=== PATIENT | female | born 1990 | race Caucasian/White ===

== ENCOUNTER 2022-06-09 15:47 | Emergency (ER) | payer OTHER, SELFPAY ==
--- OUTSIDE RECORDS SUMMARY | 2022-06-09 15:50 | XMS REPORT | Continuity of Care Document ---
:1990 Author Organization [facility] t Address [address] [place] [address] Care Team Providers Name Role Phone Dominic Greco DO Primary Care Physician DOMINIC GRECO Attending Clinician Unavailable GAGAN ROB Attending Clinician Unavailable Gagan Quintana Attending Clinician Lab, Adc Fam Pob I Attending Clinician Unavailable Arleen Molina Attending Clinician ARLEEN RODRIGUEZ Attending Clinician Unavailable Doctor Unassigned, [place] Attending Clinician Unavailable Payers Payer Name Policy Type Policy Number Effective Date Expiration Date Elkin prince MULTPLN-RELIANT 2 [id number] 2021 00:00:00 STD LIFE/PPO Problems Condition Condition Condition Status Onset Resolution Last Treating Co mments Source Name Details Category Date Date Treatment Clinician Date No known No known Disease Kelse y active active Seybold problems problems Allergies, Adverse Reactions, Alerts Allergy Allergy Status Severity Reaction(s) Onset Inactive Treating Comm ents Source Name Type Date Date Clinician NO KNOWN Drug Active Univers ALLERGIE Class ity of [facility] Social History Social Habit Start Date Stop Date Quantity Comments Source Tobacco use and 2021-10-27 2021-10-27 Smokeless tobacco Ernst byrnes ybold exposure 00:00:00 00:00:00 non-user Sex Ass[birth year] At [birth year] Rebekah Se ybold 00:00:00 00:00:00 Smoking Status Start Date Stop Date Source Unknown if ever smoked Universit y [facility] Never smoked tobacco Rebekah Pedrazayb old Medications Ordered Filled Start Stop Current Ordering Indication Dosage Frequency Signature Comments Components Source Medication Medication Date Date Medication? Clinician (SIG) Name Name Celecoxib Yes [id number] 200mg Take 1 Rebekah (CeleBREX) 18 540379 capsule Seyb old 200 MG oral 00:00: (200 mg Capsule 00 total) by mouth 2 times daily Vital Signs Vital Name Observation Time Observation Value Comments Source Diastolic blood 2021-10-27 16:58:00 63 mm[Hg] Tayese y Seybold pressure Heart rate 2021-10-27 16:58:00 86 /min Rebekah mendezboarnel Body temperature 2021-10-27 16:58:00 36.5 Tia Ese ey Seybold Respiratory rate 2021-10-27 16:58:00 14 /min Ese mendez Seybniraj Body height 2021-10-27 16:58:00 170.2 cm Rebekah dorsey Body weight 2021-10-27 16:58:00 108.591 kg Rebekah dorsey BMI 2021-10-27 16:58:00 37.50 kg/m2 Rebekah dorsey Systolic blood pressure 2021-10-27 16:58:00 112 mm[Hg] Rebekah Pedrazanatali Procedures This patient has no known procedures. Encounters Start End Encounter Admission Attending Care Care Encounter Source Date/Time Date/Time Type Type Clinicians Facility Department ID 2021-11-07 2021-11-07 Outpatient REBEKAH GRECO [id number] Rebekah 00:00:00 00:00:00 DOMINIC salguero 2021-10-31 2021-10-31 Outpatient REBEKAH ROB [id number] Rebekah 00:00:00 00:00:00 GAGAN salguero 2021-10-27 2021-10-27 Office [place] Rob [id number] Rebekah 11:00:00 11:30:00 Visit Gagan Pettit [id number] [place] [id number] 2021-10-27 2021-10-27 Outpatient REBEKAH ROB [id number] Rebekah 00:00:00 00:00:00 GAGAN salguero 2020-09-07 2020-09-07 Laboratory Lab, Adc Fam Pob I [facility] [id number] Univers 15:08:38 15:28:38 Only JenniferArleen [facility] [id number] [facility]y [facility] [place] [id number] [place] as Professio [phone] [address] 2020-09-07 2020-09-07 Outpatient R JENNIFER [facility] [id number] Univers 15:20:00 15:20:00 ARLEEN ity of [facility] 2020-09-07 2020-09-07 Letter Doctor PÉREZ [id number] Univers 00:00:00 00:00:00 (Out) Unassigned, MAHENDRA [id number] ity of [place] [facility] [id number] [place] as [phone] [address] 2020-09-07 2020-09-07 Letter Jennifer [facility] [id number] Univers 00:00:00 00:00:00 (Out) Arleen [facility] [id number] i ty [facility] [place] [id number] [place] Professio [phone] [place] [address] [address] Results This patient has no known results.
[2022-06-09 16:19] LABS: Absolute Lymphocytes (CBC) 2.4 K/uL (0.7-4.9); Hematocrit 43.5 % (36.0-45.0); Lymphocytes % 27.3 % (15.3-44.8); MCV 84.4 fL (80-100); RBC Red Blood Cell Count 5.16 M/uL (3.86-4.86)
[2022-06-09 16:25] LABS: Protime INR 1.03
[2022-06-09 16:40] LABS: ALT/SGPT 34 U/L (12-78); AST/SGOT 13 U/L (15-37); Albumin 3.8 g/dL (3.4-5.0); Alkaline Phosphatase 88 U/L (45-117); BUN Blood Urea Nitrogen 10 mg/dL (7-18); Bicarbonate 26 mmol/L (21-32); Bilirubin Direct < 0.1 mg/dL (0-0.2); Bilirubin Total 0.4 mg/dL (0.2-1.0); Glomerular Filtration Rate 95 ml/min (=/>90); Glucose Level 94 mg/dL (74-106); Magnesium 2.2 mg/dL (1.8-2.4); NT PRO-BNP 8 pg/mL (<125); Potassium 3.8 mmol/L (3.5-5.1); Protein, Total 7.7 g/dL (6.4-8.2); Sodium Level 138 mmol/L (136-145); Troponin High Sensitivity < 3.0 pg/mL (<58.9)
--- NOTE | 2022-06-09 18:10 | RAD REPORT ---
EXAM DESCRIPTION: RAD - Chest Single View - 06/09/2022 5:44 pm CLINICAL HISTORY: CHEST PAIN COMPARISON: None TECHNIQUE: AP portable chest image was obtained 06/09/2022 5:44 pm . FINDINGS: Lungs are clear. Heart and vasculature are normal. No measurable pleural effusion and no p neumothorax. No acute bony abnormality seen. No acute aortic findings suspected. IMPRESSION: No acute cardiopulmonary process.
[2022-06-09] MEDS ORDERED: KETOROLAC 30 MG/ML INJ ONE (18:16)
[2022-06-09] MEDS ORDERED: MAGNES/ALUMIN/SIMET 30ML UCUP ONE ×2 (18:16→18:17)
[2022-06-09] MEDS ORDERED: LIDOCAINE VISCOUS 2% SOLN 15 ML UDC ONE (18:16)
--- NOTE | 2022-06-09 19:37 | ER ---
Nurse's Notes [facility] Name: Comfort Ivory Age: 32 yrs Sex: Female : 1990 Arrival Date: 06/09/2022 Time: 15:49 Bed 11 Private MD: Diagnosis: Chest pain, unspecified Presentation: 06/09 15:51 Chief complaint: Patient states: I started having chest pain yesterday that is going bm7 into my left shoulder. I went to urgent care and they told me it would be better if I came here because I have a family historic heart problems. Coronavirus screen: At this time, the client does not indicate any symptoms associated with coronavirus-19. Ebola Screen: No symptoms or risks identified at this time. Initial Sepsis Screen: Does the patient meet any 2 criteria? No. Patient's initial sepsis screen is negative. Does the patient have a suspected source of infection? No. Patient's initial sepsis screen is negative. Risk Assessment: Do you want to hurt yourself or someone else? Patient reports no desire to harm self or others. Onset of symptoms was June 09, 2022. 15:51 Method Of Arrival: Ambulatory 7 15:51 Acuity: TIARRA 3 bm7 Triage Assessment: 15:53 General: Appears in no apparent distress. comfortable, obese, Behavior is calm, bm7 cooperative, appropriate for age. Pain: Complains of pain in anterior aspect of left upper chest Pain radiates to left arm. EENT: No deficits noted. No signs and/or symptoms were reported regarding the EENT system. Neuro: No deficits noted. Cardiovascular: Reports chest pain, Denies shortness of breath, Heart tones S1 S2 present Capillary refill < 3 seconds Patient's skin is warm and dry. Chest pain is described as vague, radiates to left arm(s). Respiratory: No deficits noted. GI: No deficits noted. No signs and/or symptoms were reported involving the gastrointestinal system. : No deficits noted. No signs and/or symptoms were reported regarding the genitourinary system. Derm: No deficits noted. No signs and/or symptoms reported regarding the dermatologic system. Musculoskeletal: No deficits noted. No signs and/or symptoms reported regarding the musculoskeletal system. 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 - Social history:: Smoking status: Patient denies any tobacco usage or history of. Screenin:10 Abuse screen: Denies threats or abuse. Denies injuries from another. Nutritional eh3 screening: No deficits noted. Tuberculosis screening: No symptoms or risk factors identified. Fall Risk None identified. Assessment: 16:10 General: Appears in no apparent distress. uncomfortable, Behavior is cooperative, eh3 appropriate for age, anxious. Pain: Complains of pain in left arm and anterior aspect of left upper chest Pain currently is 7 out of 10 on a pain scale. Quality of pain is described as sharp, Pain began 1 day ago. Is continuous. Pain: Pain does not radiate. Alleviated by nothing. Neuro: Level of Consciousness is awake, alert, obeys commands, Oriented to person, place, time, Appropriate for age. Cardiovascular: Capillary refill < 3 seconds Patient's skin is warm and dry. Rhythm is sinus rhythm. Respiratory: Airway is patent Respiratory effort is even, unlabored. GI: No signs and/or symptoms were reported involving the gastrointestinal system. : No signs and/or symptoms were reported regarding the genitourinary system. EENT: No signs and/or symptoms were reported regarding the EENT system. Derm: No signs and/or symptoms reported regarding the dermatologic system. Musculoskeletal: Circulation, motion, and sensation intact. Range of motion: intact in all extremities. 17:10 Reassessment: Patient and/or family updated on plan of care and expected duration. Pain eh3 level reassessed. Patient is alert, oriented x 3, equal unlabored respirations, skin warm/dry/pink. 18:10 Reassessment: Patient and/or family updated on plan of care and expected duration. Pain eh3 level reassessed. Patient is alert, oriented x 3, equal unlabored respirations, skin warm/dry/pink. Vital Signs: 15:51 BP 112 / 71; Pulse 86; Resp 16; Temp 97.5(TE); Pulse Ox 98% on R/A; Weight 104.33 kg bm7 (R); Height 5 ft. 7 in. (170.18 cm); Pain 7/10; 16:10 BP 118 / 77; Pulse 80; Resp 18; Pulse Ox 98% on R/A; eh3 17:10 BP 117 / 70; Pulse 83; Resp 16; Pulse Ox 100% on R/A; eh3 18:10 BP 118 / 73; Pulse 80; Resp 18; Pulse Ox 96% on R/A; eh3 19:36 BP 125 / 99; Pulse 89; Resp 18; Pulse Ox 100% on R/A; ld1 15:51 Body Mass Index 36.02 (104.33 kg, 170.18 cm) 7 ED Course: 15:49 Patient arrived in ED. as 15:50 Juan Jose Martinez PA is PHCP. [facility] 15:50 Marlee Jacobsen MD is Attending Physician. [facility] 15:53 Triage completed. [facility] 15:53 Arm band placed on right wrist. [facility] 15:56 Latanya Wheatley, ZEFERINO is Primary Nurse. eh3 16:10 Patient has correct armband on for positive identification. Bed in low position. Call 3 light in reach. Side rails up X2. Adult w/ patient. Client placed on continuous cardiac and pulse oximetry monitoring. NIBP monitoring applied. Door closed. Noise minimized. 16:10 No provider procedures requiring assistance completed. Patient maintains SpO2 eh3 saturation greater than 95% on room air. 18:35 Troponin High Sensitivity Sent. eh3 19:47 IV discontinued, intact, bleeding controlled, No redness/swelling at site. ld1 Administered Medications: 18:35 Drug: Ketorolac 30 mg Route: IVP; Site: right antecubital; eh3 18:35 Drug: GI Cocktail without - (Maalox Suspension 30 ml, Lidocaine Liquid 2 % 15 eh3 ml) Route: PO; Medication: 16:10 VIS not applicable for this client. eh3 Outcome: 19:37 Discharge ordered by . [facility] 19:47 Discharged to home ambulatory, with family. ld1 19:47 Condition: stable 19:47 Discharge instructions given to patient, Instructed on discharge instructions, follow up and referral plans. Demonstrated understanding of instructions, follow-up care. 19:47 Patient left the ED. ld1 Signatures: Juan Jose Martinez PA PA jmm Martinez, Amelia as McCarthy, Brittany, RN RN bm7 Ilene Mayo RN RN ld1 Latanya Wheatley RN RN eh3
--- NOTE | 2022-06-09 19:37 | EDPHYS ---
Physician Documentation [facility] Name: Comfort Ivory Age: 32 yrs Sex: Female : 1990 Arrival Date: 06/09/2022 Time: 15:49 Bed 11 Private MD: ED Physician Marlee Jacobsen HPI: 06/09 19:29 This 32 yrs old Female presents to ER via Ambulatory with complaints of Chest Pain. jmm 19:29 The patient or guardian reports chest pain that is located primarily in the substernal [place] area. The pain radiates to the left shoulder. Associated signs and symptoms: Pertinent positives: shortness of breath. The chest pain is described as aching, a pressure. Duration: The patient or guardian reports a single episode, that is still ongoing. Modifying factors: The symptoms are alleviated by nothing. the symptoms are aggravated by nothing. This is a 32 year old female with no chronic medical conditions that presents to the ED with complaints of chest pain beginning yesterday morning which she awoke to. Denies injury. Also having some sob possible due to her reactive airway disease. Denies fever, cough, vomiting, abdominal pain. . 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 - Social history:: Smoking status: Patient denies any tobacco usage or history of. ROS: 19:29 Constitutional: Negative for fever, chills, and weight loss. jmm 19:29 Cardiovascular: Positive for chest pain. 19:29 Respiratory: Positive for shortness of breath. 19:29 All other systems are negative. Exam: 19:29 Constitutional: This is a well developed, well nourished patient who is awake, alert, jmm and in no acute distress. Head/Face: atraumatic. Eyes: EOMI, no conjunctival erythema appreciated ENT: Moist Mucus Membranes Neck: Trachea midline, Supple Chest/axilla: Normal chest wall appearance and motion. 19:29 Abdomen/GI: Non distended Back: Normal ROM Skin: General appearance color normal MS/ Extremity: Moves all extremities, no obvious deformities appreciated, no edema noted to the lower extremities Neuro: Awake and alert Psych: Behavior is normal, Mood is normal, Patient is cooperative and pleasant 19:29 Cardiovascular: Rate: normal, Rhythm: regular. 19:29 Respiratory: the patient does not display signs of respiratory distress, Respirations: normal, Breath sounds: are clear throughout. 19:35 ECG was reviewed by the Attending Physician. [place] Vital Signs: 15:51 BP 112 / 71; Pulse 86; Resp 16; Temp 97.5(TE); Pulse Ox 98% on R/A; Weight 104.33 kg bm7 (R); Height 5 ft. 7 in. (170.18 cm); Pain 7/10; 16:10 BP 118 / 77; Pulse 80; Resp 18; Pulse Ox 98% on R/A; eh3 17:10 BP 117 / 70; Pulse 83; Resp 16; Pulse Ox 100% on R/A; eh3 18:10 BP 118 / 73; Pulse 80; Resp 18; Pulse Ox 96% on R/A; eh3 19:36 BP 125 / 99; Pulse 89; Resp 18; Pulse Ox 100% on R/A; ld1 15:51 Body Mass Index 36.02 (104.33 kg, 170.18 cm) bm7 MDM: 16:00 Patient medically screened. [place] 19:34 Data reviewed: vital signs, nurses notes, lab test result(s), EKG, radiologic studies. [place] 19:35 ED course: Labs, imaging unremarkable. Heart score = 1. Advised to follow up with pcp octaviano and otherwise given strict return precautions. Patient understood and agrees with the plan of care. . 06/09 15:54 Order name: Basic Metabolic Panel [place] 06/09 15:54 Order name: CBC with Diff [place] 06/09 15:54 Order name: D-Dimer [place] 06/09 15:54 Order name: LFT's [place] 06/09 15:54 Order name: Magnesium [place] 06/09 15:54 Order name: NT PRO-BNP [place] 06/09 15:54 Order name: PT-INR [place] 06/09 15:54 Order name: Troponin HS [place] 06/09 16:20 Order name: CBC with Automated Diff; Complete Time: 16:30 EDMS 06/09 16:26 Order name: Protime (+INR); Complete Time: 16:30 EDMS 06/09 16:26 Order name: D-Dimer; Complete Time: 16:30 EDMS 06/09 16:41 Order name: Basic Metabolic Panel; Complete Time: 16:49 EDMS 06/09 16:41 Order name: Liver (Hepatic) Function; Complete Time: 16:49 EDMS 06/09 16:41 Order name: Troponin High Sensitivity; Complete Time: 16:49 EDMS 06/09 15:54 Order name: XRAY Chest (1 view) [place] 06/09 15:54 Order name: EKG; Complete Time: 15:55 [place] 06/09 15:54 Order name: Cardiac monitoring; Complete Time: 16:10 [place] 06/09 15:54 Order name: EKG - Nurse/Tech; Complete Time: 16:10 [place] 06/09 15:54 Order name: IV Saline Lock; Complete Time: 16:10 [place] 06/09 15:54 Order name: Labs collected and sent; Complete Time: 16:10 [place] 06/09 15:54 Order name: O2 Per Protocol; Complete Time: 16:10 [place] 06/09 15:54 Order name: O2 Sat Monitoring; Complete Time: 16:10 [place] 06/09 16:41 Order name: NT PRO-BNP; Complete Time: 16:49 EDMS 06/09 16:41 Order name: Magnesium; Complete Time: 16:49 EDMS 06/09 17:20 Order name: Troponin High Sensitivity [place] 06/09 18:10 Order name: RAD; Complete Time: 18:14 EDMS 06/09 19:07 Order name: Troponin High Sensitivity; Complete Time: 19:09 EDMS EC:35 Rate is 83 beats/min. Rhythm is regular. QRS [place] is Normal. UT interval is normal. QRS jmm interval is normal. QT interval is normal. No Q waves. T waves are Normal. No ST changes noted. Reviewed by me. Administered Medications: 18:35 Drug: Ketorolac 30 mg Route: IVP; Site: right antecubital; eh3 18:35 Drug: GI Cocktail without - (Maalox Suspension 30 ml, Lidocaine Liquid 2 % 15 eh3 ml) Route: PO; Disposition Summary: 06/09/22 19:37 Discharge Ordered Location: Home jmm Condition: Stable jmm Diagnosis - Chest pain, unspecified jmm Followup: jmm - With: Private Physician - When: 2 - 3 days - Reason: Recheck today's complaints, Continuance of care, Re-evaluation by your physician Discharge Instructions: - Discharge Summary Sheet jmm - Nonspecific Chest Pain, Adult jmm Forms: - Medication Reconciliation Form jmm - Thank You Letter jmm - Antibiotic Education jmm - Work release form jmm - Prescription Opioid Use jmm Signatures: Dispatcher [employer] EDJuan Jose Diana PA PA jmm McCarthy, Brittany, RN RN bm7 Latanya Wheatley, RN RN eh3
[2022-06-09 19:56] VITALS: TEMP 97.5
[2022-06-09 20:01] VITALS: BP 125/99; O2SAT 100
--- NOTE | 2022-06-10 07:44 | EKG ---
Test Date: 2022-06-09 Test Time: 16:07:40 Stroke Program Coordinator: MOSES MEASUREMENT RESULTS: Intervals: Rate: 83 [place]: 138 QRSD: 82 QT: 372 QTc: 437 [place]: P: 12 AZ: 138 QRS: 55 T: 34 INTERPRETIVE STATEMENTS: Normal sinus rhythm Normal ECG No previous ECG available for comparison Electronically Signed On 06-10-22 07:43:30 CDT by Osman Francisco
== END 2022-06-09 19:47 | disposition home or self-care (01) ==
LOC: ER 15:47
DX: R07.9 Chest pain, unspecified (principal)
CPT/HCPCS: 36415; 71045; 80048; 80076; 83735; 83880; 84484; 85025; 85379; 85610; 93005; 96374; 99284

== ENCOUNTER 2024-05-10 14:23 | Emergency (ER) | payer SELFPAY ==
--- OUTSIDE RECORDS SUMMARY | 2024-05-10 14:28 | XMS REPORT | Continuity of Care Document ---
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 Name Role Phone Dominic Greco DO Primary Care Physician [phone] DOMINIC GRECO Attending Clinician Unavailable GAGAN ROB Attending Clinician Unavailable Gagan Quintana Attending Clinician [phone] Lab, Adc Fam Pob I Attending Clinician Unavailab Arleen Newman Attending Clinician [phone] ARLEEN KSIER Attending Clinician Unavailable Doctor Unassigned, [place] Attending Clinician U navailable Payers Payer Name Policy Type Policy Number Effective Date Expirati on Date Source MULTPLN-RELIANT STD LIFE/PPO 2 [id number] 2021 00:00:00 Problems Condition Name Condition Details Condition Category Status Onset Date Resolution Date Last Treatment Date Treating Clinician Comments Source No known active problems No known active problems Disease Rebekah Gillespie Allergies, Adverse Reactions, Alerts Allergy Name Allergy Type Status Severity Reaction(s) Onset Date Inactive Date Treating Clinician Comments Source NO KNOWN ALLERGIE S Drug Class Active Univers [facility] Social History Social Habit Start Date Stop Date Quantity Comments Source Tobacco use and exposure 2021-10-27 00:00:00 2021-10-27 00:00:00 Smokeless tobacco non-user Rebekah Gillespie Sex Ass[birth year] At 1990 00:00:00 1990 00:00:00 Rebekah Gillespie Smoking Status Start Date Stop Date Source Unknown if ever smoked [facility] Never smoked tobacco Rebekah Gillespie Medications Ordered Medication Name Filled Medication Name Start Date Stop Date Current Medication? Ordering Clinician Indication Dosage Frequency Signature (SIG) Comments Components Source Celecoxib (CeleBREX) 200 MG oral Capsule 10-27 00:00: 00 Yes [id number] 200mg Take 1 capsule (200 mg total) by mouth 2 times daily Rebekah Seryanniraj Vital Signs Vital Name Observation Time Observation Value Comments S ource Diastolic blood pressure 2021-10-27 16:58:00 63 mm[Hg] Rebekah ryanmike ld Heart rate 2021-10-27 16:58:00 86 /min Kel y Verna Body temperature 2021-10-27 16:58:00 36.5 Tia Rebekah Gillespie Respiratory rate 2021-10-27 16:58:00 14 /min Rebekah Gillespie Body height 2021-10-27 16:58:00 170.2 cm Ese Gillespie Body weight 2021-10-27 16:58:00 108.591 kg Ese mendez Seybniraj BMI 2021-10-27 16:58:00 37.50 kg/m2 Ese mendez Seybniraj Systolic blood pressure 2021-10-27 16:58:00 112 mm[Hg] Rebekaheduar Gillespie Encounters Start Date/Time End Date/Time Encounter Type Admission Type Attending [facility] Facility Care Department Encounter ID Source 2021-11-07 00:00:00 2021-11-07 00:00:00 Outpatient DOMINIC GRECO [id number] Rebekah natali 2021-10-31 00:00:00 2021-10-31 00:00:00 Outpatient GAGAN ROB [id number] Rebekah niraj 2021-10-27 11:00:00 2021-10-27 11:30:00 Office Visit Gagan Rob [id number] Rebekah Jaynaniraj 2021-10-27 00:00:00 2021-10-27 00:00:00 Outpatient GAGAN ROB [id number] Rebekah natali 2020-09-07 15:08:38 2020-09-07 15:28:38 Laboratory Only Lab, Adc Fam Pob I Arleen Kiser [facility] [address] .[id number] [facility] 2020-09-07 15:20:00 2020-09-07 15:20:00 Outpatient R ARLEEN KISER [facility] [id number] [facility] 2020-09-07 00:00:00 2020-09-07 00:00:00 Letter (Out) Doctor Unassigned, [place] [facility] ..[id number] [facility] 2020-09-07 00:00:00 2020-09-07 00:00:00 Letter (Out) Arleen Kiser [facility] [address] ..114 [id number] [facility]
[2024-05-10 17:23] LABS: Absolute Basophils 0.1 K/uL (0-0.5); Absolute Eosinophils 0.1 K/uL (0-0.5); Absolute Lymphocytes (CBC) 2.5 K/uL (0.7-4.9); Absolute Monocytes 0.6 K/uL (0.1-1.3); Absolute Neutrophil 8.5 K/uL (1.8-8.0); Basophils % 0.6 % (0-1.3); Eosinophils % 0.9 % (0-4.4); Hematocrit 42.3 % (36.0-45.0); Hemoglobin 13.9 g/dL (12.0-15.0); Lymphocytes % 21.2 % (15.3-44.8); MCH 27.9 pg (27.0-35.0); MCHC 32.9 g/dL (32.0-36.0); MPV 7.8 fL (7.6-11.3); Monocytes % 5.1 % (3.3-12.3); Neutrophils % 72.2 % (41.7-73.7); Nucleated Red Blood Cells % 0.1 % (0-0); Platelets 308 thou/uL (152-406); RBC Red Blood Cell Count 4.98 M/uL (3.86-4.86); Red Cell Distribution Width 14.1 % (12.1-15.2)
[2024-05-10 17:34] LABS: Specific Gravity > 1.030 (1.005-1.030)
[2024-05-10 17:37] LABS: Albumin/Globulin Ratio 1.1 (1.1-1.8); Anion Gap 7.4 mEq/L (5.0-15.0); Bilirubin Total 0.5 mg/dL (0.2-1.0); Globulin 3.7 g/dL (2.3-3.5); Potassium 3.4 mEq/L (3.5-5.1); Protein, Total 7.7 g/dL (6.4-8.2)
[2024-05-10 17:38] LABS: Specific Gravity > 1.030 (1.005-1.030); Urine Bacteria <20 /HPF (<20); Urine Bilirubin NEGATIVE (Negative); Urine Blood Negative (Negative); Urine Clarity Turbid (Clear); Urine Color Yellow (Yellow); Urine Crystals Unidentified Few /HPF (None Seen); Urine Culture Reflex Order NOT NEEDED; Urine Glucose NEGATIVE (Negative); Urine Ketones 2+ (Negative); Urine Microscopic Reflex YN ORDER UMIC; Urine Mucus 1+ /HPF (None Seen); Urine Nitrite NEGATIVE (Negative); Urine Protein TRACE (Negative); Urine RBC <5 /HPF (None Seen); Urine Urobilinogen Normal (Normal); Urine WBC <5 /HPF (<5)
--- NOTE | 2024-05-10 18:02 | RAD REPORT ---
EXAM DESCRIPTION: CTAbdomen Pelvis W Contrast - 05/10/2024 5:57 pm CLINICAL HISTORY: Abdominal pain. ABD PAIN COMPARISON: <Comparisons> TECHNIQUE: Biphasic CT imaging of the abdomen and pelvis was performed with 100 ml non-ionic IV cont rast. All CT scans are performed using dose optimization technique as appropriate and may include automated exposure control or mA/KV adjustment according to patient size. FINDINGS: The lung bases are clear. The liver is diffusely fatty. Spleen, pancreas, adrenal glands and kidneys are within normal limits. No bowel obstruction, free air, free fluid or abscess. The appendix is normal. No evidence of signi ficant lymphadenopathy. Large cystic mass is present in the pelvis measuring 19 x 11 cm. No suspicious bony findings. IMPRESSION: Large cystic pelvic mass is likely ovarian in origin. It may represent an ovarian cystad enoma or cystadenocarcinoma.
--- NOTE | 2024-05-10 18:58 | RAD REPORT ---
EXAM DESCRIPTION: US - Abdomen Exam Limited - 05/10/2024 6:42 pm CLINICAL HISTORY: cystic mass Abdominal pain COMPARISON: <Comparisons> FINDINGS: The gallbladder demonstrates no gallstones. No pericholecystic fluid or gallbladder wall t hickening. The common bile duct is normal measuring 4 mm. The liver demonstrates no findings of intrahepatic biliary dilatation. IMPRESSION: Unremarkable examination.
--- NOTE | 2024-05-10 19:02 | RAD REPORT ---
EXAM DESCRIPTION: US - Pelvis Complete - 05/10/2024 6:47 pm CLINICAL HISTORY: ABD PAIN Pelvic pain. COMPARISON: <Comparisons> FINDINGS: The uterus is normal in size, shape and echotexture. The uterus measures 7 x 4 cm. Both ovaries are normal in size, shape and echotexture. The right ovary measures 2.4 x 2.1 cm. The left ovary measures 3.0 x 2.4 cm.. No ovarian or parovarian lesions. No adnexal masses. Normal Doppler blood flow was demonstrated to both ovaries. Very large cystic mass in the pelvis measures 20 x 20 x 11 cm. 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
--- NOTE | 2024-05-10 19:11 | ER ---
Nurse's Notes [facility] Name: Comfort Ivory Age: 34 yrs Sex: Female : 1990 Arrival Date: 05/10/2024 Time: 14:23 Bed 7 Private MD: Diagnosis: Ovarian mass Presentation: 05/10 15:04 Chief complaint: Patient states: she has been having right lower abdominal pain "for a ap3 couple days". patient also reports nausea. patient currently rates her pain as a 3/10 on the pain scale. Coronavirus screen: At this time, the client does not indicate any symptoms associated with coronavirus-19. Ebola Screen: No symptoms or risks identified at this time. Initial Sepsis Screen: Does the patient meet any 2 criteria? No. Patient's initial sepsis screen is negative. Does the patient have a suspected source of infection? No. Patient's initial sepsis screen is negative. Risk Assessment: Do you want to hurt yourself or someone else? Patient reports no desire to harm self or others. Onset of symptoms is unknown. 15:04 Method Of Arrival: Ambulatory ap3 15:04 Acuity: TIARRA 3 ap3 Triage Assessment: 15:06 General: Appears in no apparent distress. Behavior is calm, cooperative, appropriate ap3 for age. Pain: Complains of pain in right lower quadrant Pain currently is 3 out of 10 on a pain scale. at worst was 10 out of 10 on a pain scale. Neuro: Level of Consciousness is awake, alert, obeys commands, Oriented to person, place, time, situation, Appropriate for age. Cardiovascular: Patient's skin is warm and dry. Respiratory: Airway is patent Respiratory effort is even, unlabored, Respiratory pattern is regular, symmetrical. GI: Reports lower abdominal pain, nausea. 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 - Infectious Disease History:: Denies. - Social history:: Smoking status: Patient denies any tobacco usage or history of. Screenin:07 [facility] ED Fall Risk Assessment (Adult) History of falling in the last 3 months, ap3 including since admission No falls in past 3 months (0 pts) Confusion or Disorientation No (0 pts) Intoxicated or Sedated No (0 pts) Impaired Gait No (0 pts) Mobility Assist Device Used No (0 pt) Altered Elimination No (0 pt) Score/Fall Risk Level 0 - 2 = Low Risk Oriented to surroundings, Maintained a safe environment, Educated pt \\T\\ family on fall prevention, incl call for assistance when getting out of bed, Assessed \\T\\ reinforced patient's understanding of fall precautions, Hourly rounding (assess needs \\T\\ fall precautionary measures) done, Used ambulatory aids as needed (educated on \\T\\ assisted with), Used gait belt as appropriate. Abuse screen: Denies threats or abuse. Nutritional screening: No deficits noted. Tuberculosis screening: No symptoms or risk factors identified. Assessment: 17:09 General: Appears in no apparent distress. Behavior is calm, cooperative. Pain: mb9 Complains of pain in abdomen Pain radiates to right lower quadrant Pain currently is 2 out of 10 on a pain scale. Quality of pain is described as crampy, Pain began suddenly, Is intermittent. Neuro: Wallace Agitation-Sedation Scale (RASS): 0 - Alert and Calm Level of Consciousness is awake, alert, obeys commands, Oriented to person, place, time, situation, Appropriate for age. Cardiovascular: Patient's skin is warm and dry. Respiratory: Airway is patent Respiratory effort is even, unlabored, Respiratory pattern is regular, symmetrical, Breath sounds are clear bilaterally. GI: Abdomen is round non-distended, Bowel sounds present X 4 quads. Abd is soft Abdomen is tender to palpation in right lower quadrant. : No signs and/or symptoms were reported regarding the genitourinary system. EENT: No signs and/or symptoms were reported regarding the EENT system. Derm: Skin is pink, warm \\T\\ dry. Musculoskeletal: Range of motion: intact in all extremities. 18:23 Reassessment: No changes from previously documented assessment. Patient and/or family mb9 updated on plan of care and expected duration. Pain level reassessed. Patient is alert, oriented x 3, equal unlabored respirations, skin warm/dry/pink. 18:24 Reassessment: Ultrasound at bedside. mb9 Vital Signs: 15:04 BP 144 / 88; Pulse 85; Resp 17; Temp 98.4; Pulse Ox 100% ; Weight 104.33 kg; Height 5 ap3 ft. 7 in. ; Pain 3/10; 18:23 BP 115 / 64; Pulse 77; Resp 16; Pulse Ox 100% on R/A; mb9 19:29 BP 142 / 79; Pulse 91; Resp 16; Pulse Ox 100% on R/A; al5 15:04 Body Mass Index 36.02 (104.33 kg, 170.18 cm) ap3 15:04 Pain Scale: Adult ap3 ED Course: 14:28 Patient arrived in ED. mg5 14:39 Dolores Velasco PA-C is PHCP. sb4 14:39 Surekha Norris MD is Attending Physician. sb4 15:05 Triage completed. ap3 15:07 Arm band placed on right wrist. ap3 16:55 Donna Baker, ZEFERINO is Primary Nurse. mb9 17:03 Placed in gown. Bed in low position. Call light in reach. Side rails up X 1. Provided mb9 Education on: press call light if needing anything . Client placed on continuous cardiac and pulse oximetry monitoring. NIBP monitoring applied. 17:09 CBC with Diff Sent. mb9 17:09 CMP Sent. mb9 17:09 Test, Urine Sent. mb9 17:09 Urinalysis w/ reflexes Sent. mb9 17:09 Initial lab(s) drawn, by me, sent to lab. Urine collected: clean catch specimen, clear. mb9 Inserted saline lock: 20 gauge in right antecubital area, using aseptic technique. Blood collected. Flushed with 10 mL NS. 17:10 No provider procedures requiring assistance completed. mb9 17:59 CT Abd/Pelvis - IV Contrast Only In Process Unspecified. EDMS 18:44 Abdomen Limited US In Process Unspecified. EDMS 18:48 Pelvis Complete In Process Unspecified. EDMS 19:00 Report given to Ryan and Almaz. mb9 19:29 IV discontinued, intact, bleeding controlled, No redness/swelling at site. Pressure al5 dressing applied. Administered Medications: No medications were administered Medication: 17:03 VIS not applicable for this client. mb9 Outcome: 19:11 Discharge ordered by . sp3 19:29 Discharged to home ambulatory, with family, al5 19:29 Condition: good 19:29 Discharge instructions given to patient, Instructed on discharge instructions, follow up and referral plans. Demonstrated understanding of instructions, follow-up care, 19:29 Patient left the ED. al5 Signatures: Dispatcher [employer] Almaz Mooney, RN RN ap3 Surekha Norris MD MD sp3 Dolores Velasco PA-C PANick anand4 Donna Baker RN RN mb9 Monika Arndt 5 Almaz Chan RN RN al5 Corrections: (The following items were deleted from the chart) 15:06 15:05 PMHx: Diabetes mellitus; ap3 ap3 18:48 18:44 In radiology for Transvaginal Study (Probe)+US.[email or web address]. EDMS EDMS
--- NOTE | 2024-05-10 19:11 | EDPHYS ---
Physician Documentation [facility] Name: Comfort Ivory Age: 34 yrs Sex: Female : 1990 Arrival Date: 05/10/2024 Time: 14:23 Bed 7 Private MD: ED Physician Surekha Norris HPI: 05/10 15:17 This 34 yrs old Female presents to ER via Ambulatory with complaints of Abdominal Pain. sb4 15:17 The patient presents with abdominal pain in the lower abdomen. Onset: The sb4 symptoms/episode began/occurred 3 week(s) ago. The symptoms do not radiate. Associated signs and symptoms: Pertinent positives: nausea. The symptoms are described as vague. Modifying factors: The symptoms are alleviated by nothing, the symptoms are aggravated by nothing. The patient has not experienced similar symptoms in the past. The patient has not recently seen a physician. Patient states he started experiencing left lower quadrant abdominal pain about 3 weeks ago. She states that her menstrual cycle was initially 5 months late and then she got it and it was very heavy. She states that the bleeding has stopped but now she has been having right lower quadrant abdominal pain. She denies any prior gynecologic diagnoses. Is not on any contraceptives. States she has an appointment with a client solutions manager in 1 week. 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 - Infectious Disease History:: Denies. - Social history:: Smoking status: Patient denies any tobacco usage or history of. ROS: 15:17 Constitutional: Negative for fever, chills, and weight loss, sb4 15:17 Abdomen/GI: Positive for abdominal pain, nausea, 15:17 All other systems are negative, Exam: 15:17 Constitutional: This is a well developed, well nourished patient who is awake, alert, sb4 and in no acute distress. Head/Face: Normocephalic, atraumatic. Eyes: Extra-ocular motions intact. Periorbital areas with no swelling, redness, or edema. ENT: Mucous membranes moist. Cardiovascular: Regular rate and rhythm with a normal S1 and S2. Respiratory: Lungs have equal breath sounds bilaterally, clear to auscultation and percussion. No rales, rhonchi or wheezes noted. No increased work of breathing, no retractions or nasal flaring. Abdomen/GI: Soft, non-tender, no distension. Skin: Warm, dry with normal turgor. Normal color with no rashes, no lesions, and no evidence of cellulitis. MS/ Extremity: Pulses equal, no cyanosis. Neurovascular intact. Full, normal range of motion. Neuro: Awake and alert, GCS 15, oriented to person, place, time, and situation. Motor strength 5/5 in all extremities. Sensory grossly intact. Vital Signs: 15:04 BP 144 / 88; Pulse 85; Resp 17; Temp 98.4; Pulse Ox 100% ; Weight 104.33 kg; Height 5 ap3 ft. 7 in. ; Pain 3/10; 18:23 BP 115 / 64; Pulse 77; Resp 16; Pulse Ox 100% on R/A; mb9 19:29 BP 142 / 79; Pulse 91; Resp 16; Pulse Ox 100% on R/A; al5 15:04 Body Mass Index 36.02 (104.33 kg, 170.18 cm) ap3 15:04 Pain Scale: Adult ap3 MDM: 14:55 Patient medically screened. sb4 18:24 Data reviewed: vital signs, nurses notes, lab test result(s), radiologic studies. sp3 19:10 ED course: Ultrasound also demonstrates no differentiation between adenoma and sp3 adenocarcinoma. We will discharge patient home with all imaging and reports in hand to follow-up with her client solutions manager which she already has an appointment for on May 18. Appointment is with Dr. Sepulveda locally here. Pain under control and vital signs are normal. We will safely discharged home at this time.. 05/10 15:14 Order name: CBC with Diff; Complete Time: 17:24 sb4 05/10 15:14 Order name: CMP; Complete Time: 17:38 sb4 05/10 15:14 Order name: Test, Urine; Complete Time: 17:36 sb4 05/10 15:14 Order name: Urinalysis w/ reflexes; Complete Time: 17:39 sb4 05/10 15:14 Order name: CT Abd/Pelvis - IV Contrast Only; Complete Time: 18:03 sb4 05/10 18:05 Order name: Abdomen Limited US; Complete Time: 19:04 sb4 05/10 18:48 Order name: Pelvis Complete; Complete Time: 19:04 EDMS 05/10 15:14 Order name: IV Saline Lock; Complete Time: 17:09 sb4 05/10 15:14 Order name: Labs collected and sent; Complete Time: 17:09 sb4 Administered Medications: No medications were administered Disposition: 05/11 08:06 Chart complete. sb4 Disposition Summary: 05/10/24 19:11 Discharge Ordered Notes: Location: Home sp3 Condition: Stable sp3 Diagnosis - Ovarian mass sp3 Followup: sp3 - With: Private Physician - When: Upon discharge from the Emergency Department - Reason: Recheck today's complaints, Continuance of care Discharge Instructions: - Discharge Summary Sheet sp3 - Ovarian Tumors sp3 Forms: - Medication Reconciliation Form sp3 - Antibiotic Education sp3 - Prescription Opioid Use sp3 - Patient Portal Instructions sp3 - Leadership Thank You Letter sp3 - Work release form al5 Signatures: Dispatcher [employer] EDAlmaz Barnes RN RN ap3 Surekha Norris MD MD sp3 Dolores Velasco PARoxanneC PA-C sb4 Donna Baker RN RN mb9 Corrections: (The following items were deleted from the chart) 05/10 15:06 15:05 PMHx: Diabetes mellitus; ap3 ap3 18:48 18:05 Transvaginal Study (Probe)+US.RAD.BRZ ordered. EDMS EDMS
[2024-05-10 19:55] VITALS: TEMP 98.4; O2SAT 100
[2024-05-10 19:56] VITALS: BP 142/79
== END 2024-05-10 19:29 | disposition home or self-care (01) ==
LOC: ER 14:23
DX: N83.8 Other noninflammatory disorders of ovary, fallopian tube and broad ligament (principal)
CPT/HCPCS: 36415; 74177; 76705; 76856; 80053; 81001; 81025; 85025; 99284; Q9967